=== PATIENT | male | born 1950 | race Caucasian/White ===

== ENCOUNTER 2021-02-11 18:16 | Emergency (ER) | payer OTHER ==
[~2021-02-11] VITALS: Ht 177.8 cm; Wt 133.8 kg
[2021-02-11] MEDS ORDERED: [UNRECOGNIZED DRUG - OTHER] (18:33)
[2021-02-11 19:29] LABS: ABSOLUTE BASOPHILS 0.1 thou/uL (0.0-0.2); ABSOLUTE EOSINOPHILS 0.5 thou/uL (0.0-0.7); ABSOLUTE LYMPHOCYTES 1.9 thou/uL (0.8-5.3); ABSOLUTE MONOCYTES 0.9 thou/uL (0.0-1.2); ABSOLUTE NEUTROPHILS 5.3 thou/uL (1.6-8.1); BASOPHILS 0.8 %; EOSINOPHILS 6.1 %; HEMATOCRIT 46.7 % (42.0-52.0); HEMOGLOBIN 15.6 gm/dL (14.0-18.0); LYMPHOCYTES 22.2 %; MCH 28.9 pg (26.0-34.0); MCHC 33.4 g/dL (28.0-37.0); MCV 86.5 fL (80.0-100.0); MONOCYTES 9.8 %; NUCLEATED RBCS 0 /100WBC; PLATELET COUNT* 262 thou/uL (150-400); POLYS 61.1 %; RDW-CV 14.2 % (10.5-14.5); WBC 8.7 thou/uL (4.0-11.0)
[2021-02-11 19:34] LABS: CALCIUM 9.6 mg/dL (8.5-10.1); CREATININE 1.2 mg/dL (0.6-1.3); POTASSIUM 4.1 mmol/L (3.5-5.1)
[2021-02-11 19:44] LABS: ALBUMIN 3.7 g/dL (3.4-5.0); TOTAL BILIRUBIN 0.3 mg/dL (<0.1-1.0); TOTAL PROTEIN 7.5 g/dL (6.4-8.2)
[2021-02-11] MEDS ORDERED: PREDNISONE 20 M20 MG PO ×2 (20:12→20:18)
[2021-02-11] MEDS ORDERED: TESSALON PERLE100 M1 PO ×2 (20:12→20:18)
[2021-02-11 20:30] VITALS: BP 180/86
== END 2021-02-11 20:31 | disposition home or self-care (01) ==
LOC: M.ERS 18:16
PROVIDERS: Physician Assistant
DX: J84.10 Pulmonary fibrosis, unspecified (principal); Z20.822 Contact with and (suspected) exposure to COVID-19; R05.9 Cough, unspecified; R06.02 Shortness of breath; R06.2 Wheezing; I10 Essential (primary) hypertension; L40.9 Psoriasis, unspecified; E66.9 Obesity, unspecified; Z68.41 Body mass index [BMI] 40.0-44.9, adult; Z79.899 Other long term (current) drug therapy; Z88.1 Allergy status to other antibiotic agents